=== PATIENT | female | born 1955 | race Caucasian/White ===

== ENCOUNTER 2018-11-12 08:39 | Inpatient (IN) ==
--- NOTE | 2018-11-11 08:33 | Anesthesiology Consultation ---
Date of Service November 11, 2018 Assessment & Plan (1) Encounter for pre-operative examination: PCP CLEARANCE 11/11/18: EKG reviewed. "RCRI 4%, no further evaluation indicated at this time. Based on patient's history and completed physical I believe this patient will do well for this surgical intervention." Spinal cord stimulator in place. Patient aware to bring remote AM DOS. OR notified. Chart Review Chart Review: Acceptable Risk for Surgery and Patient NOT seen in Pre Admission Testing History Surgery Operation Date: 11/12/18 10:25 Proposed Procedures p L3-L4 Decompression and Fusion, L4-L5 Removal Hardware, Spinal Cord Monitoring - Maciel Campbell, Height/Weight Height: 5 ft 4 in Weight: 70.76 kg Allergies Allergy/AdvReac Type Severity Reaction Status Date / Time mivacurium Allergy Severe Tongue Verified 11/12/18 09:20 swelled, itching (PATIENT DENIES THIS ALLERGY) Sulfa (Sulfonamide Allergy Severe SULFA = Unverified 11/12/18 09:20 Antibiotics) Tongue swelled, itching azithromycin [From Zithromax] Allergy Intermediate Swelling Verified 11/12/18 09:20 of Lip/Tongue/Throat bee venom protein (honey bee) Allergy Unknown ANAPHYLAXIS Verified 11/12/18 09:20 celecoxib Allergy Unknown per Verified 11/12/18 09:20 patient request- contains sulfa cyclobenzaprine AdvReac Unknown lightheadness; Verified 11/12/18 09:20 feels "out of it" Medications Home Medications Medication Instructions Recorded Confirmed Last Taken acetaminophen 500 mg PO QID PRN #0 tab 05/13/13 11/12/18 11/11/18 21:00 alprazolam 0.5 mg PO BID PRN #0 tab 05/13/13 11/12/18 11/12/18 04:30 carisoprodol 350 mg PO QID PRN #0 tab 05/13/13 11/12/18 11/11/18 21:00 fluoxetine 60 mg PO QAM #0 cap 05/13/13 11/12/18 11/11/18 06:00 milnacipran 100 mg PO BID #0 05/13/13 11/12/18 11/11/18 16:00 pantoprazole 40 mg PO QAM #30 tab 05/13/13 11/12/18 11/12/18 04:30 metoprolol succinate 25 mg PO QAM #30 tab 05/27/15 11/12/18 11/12/18 04:30 simvastatin 10 mg PO QAM #0 05/27/15 11/12/18 11/11/18 16:00 hydrochlorothiazide 25 mg PO QAM 30 Days #30 tab 06/03/15 11/12/18 11/11/18 06:00 baclofen 100 mg PO TID 10/16/18 11/12/18 11/11/18 16:00 estradiol 0.5 mg PO BID 10/16/18 11/12/18 11/11/18 06:00 gabapentin 100 mg PO TID 10/16/18 11/12/18 11/11/18 21:00 hydrocodone-acetaminophen [Vicodin 1 tab PO Q6H PRN 10/16/18 11/12/18 1 Month Ago ES] ~10/13/18 lactobacillus combination no.4 1 tab PO DAILY 10/16/18 11/12/18 11/11/18 06:00 [Probiotic] polyethylene glycol 3350 [Miralax] 17 g PO DAILY 10/16/18 11/12/18 11/11/18 06:00 aluminum-magnesium hydroxide 30 ml PO BID 11/12/18 11/12/18 11/11/18 21:00 docusate sodium [Colace] 200 mg PO DAILY 11/12/18 11/12/18 11/11/18 06:00 Active Medications Generic Name Dose Route Start Last Admin Trade Name Freq PRN Reason Stop Dose Admin Acetaminophen 1,000 mg 11/12/18 06:00 11/12/18 09:17 Tylenol PO 11/12/18 18:00 1,000 mg PREOP EMILIANA Administration Gabapentin 600 mg 11/12/18 06:00 11/12/18 09:17 Neurontin PO 11/12/18 18:00 600 mg PREOP EMILIANA Administration Lactated Ringer's 1,000 mls @ 15 mls/hr 11/12/18 06:00 11/12/18 09:17 Lr IV 11/13/18 05:59 15 mls/hr .Q24H EMILIANA Administration Past Medical History Medical History Anxiety (Acute) Depression (Acute) Esophageal motility disorder (Acute) Fibromyalgia (Acute) GERD (gastroesophageal reflux disease) (Acute) Hypertension (Acute) Irritable bowel syndrome (Acute) Lumbar spinal stenosis (Acute) Neuropathy (Acute) kylie feet and hands Bronchitis H/O Cardiac murmur PT REPORTED -- NO MURMUR NOTED AT PCP CLEARANCE 11/11 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 Past Family History Family History Grandmother Colon cancer Sister Colon cancer Grandmother (Maternal) Breast cancer Mother Breast cancer Aunt Breast cancer Past Surgical History Surgical History H/O laparoscopy (Acute) to look for adhesions H/O lumbosacral spine surgery (Acute) LUMBAR FUSION L4-L5 H/O tubal ligation (Acute) H/O: hysterectomy (Acute) TRAVON Hx of tonsillectomy (Acute) H/O shoulder surgery RIGHT SHOULDER CYST REMOVAL History of breast biopsy STEREOTACTIC RIGHT BREAST History of carpal tunnel release RIGHT History of colonoscopy S/P insertion of spinal cord stimulator S/P trigger finger release RIGHT RING FINGER Past Anesthesia History Difficult Airway H/O GLIDESCOPE 2013 LUMBAR SURGERY Social History Smoking Status: Former smoker tobacco type: cigarettes Do You Dip or Chew Tobacco: No Smoking End Date: QUIT IN HER 'S Hx Alcohol Use: Yes Alcohol type: wine alcohol intake frequency: holidays/special occasions only Hx Substance Use: No substance use type: does not use Physical Exam Vital Signs Last Vital Signs Temp 36.7 C 11/12/18 09:39 Pulse 72 11/12/18 09:39 Resp 20 11/12/18 09:39 BP 184/79 H 11/12/18 09:39 Pulse Ox 99 11/12/18 09:39 Testing Laboratory Results 11/05/18 WBC: 6.11 H/H: 13.5/40.0 PLATELETS: 266 SODIUM: 135 POTASSIUM: 3.9 CHLORIDE: 100 CO2: 28 BUN: 15 CREATININE: 0.80 GLUCOSE: 95 Electrocardiogram Date: 11/11/18 Findings: + NSR @ (84) Possible LAE. No significant change compared to 05/16/13. Chest X-Ray Date: 11/05/18 1. No acute process of the chest. 2. Bio stimulator overlying the mid thoracic spine.
[~2018-11-12 08:39] MED LIST: ACETAMINOPHEN 500 MG TAB PO SCH; CLINDAMYCIN 600 MG/54 ML BAG IV SCH; GABAPENTIN 300 MG x 2 PO SCH; HYDROmorphone INJ 2 MG/ML SYR/VIAL ONE; LR 15ML/HR IV SCH; MIDAZOLAM HCL 1 MG/ML 2ML VIAL ONE; PROPOFOL IV EMULSION 10 MG/ML 100 ML VIAL IV ONE; fentaNYL citrate 100 MCG/2 ML VIAL ONE
[2018-11-12] MEDS ORDERED: HYDROmorphone INJ 2 MG/ML SYR/VIAL IV PRN (10:12)
[2018-11-12] MEDS ORDERED: ePHEDrine sulfate 50 MG/ML AMP IV PRN (10:12)
[2018-11-12] MEDS ORDERED: ONDANSETRON INJ 2 MG/ML 2 ML VIAL IV PRN (10:12)
[2018-11-12] MEDS ORDERED: ATROPINE SULFATE 0.1 MG/ML 10ML SYR IV PRN (10:12)
--- NOTE | 2018-11-12 10:20 | History & Physical Bridge Note ---
Date of Service November 12, 2018 History & Physical Bridge Note I have examined the patient, reviewed the History & Physical and in the interval since the performance of the History & Physical I have noted the following changes of clinical significance: no changes noted
--- NOTE | 2018-11-12 10:21 | History & Physical Report ---
Date of Service November 12, 2018 Assessment & Plan (1) Spinal stenosis, lumbar region with neurogenic claudication: Decompression and fusion L3-4 removal of hardware L4-5 Present on Admission?: Yes History of Present Illness Chief Complaint: Back and leg pain Primary Care Provider: Geeta Arambula This is a 63-year-old female well-known to me that presents with severe back and leg pain. After failing extensive course of nonoperative care is here for surgical intervention. Allergies Allergy/AdvReac Type Severity Reaction Status Date / Time mivacurium Allergy Severe Tongue Verified 11/12/18 09:20 swelled, itching (PATIENT DENIES THIS ALLERGY) Sulfa (Sulfonamide Allergy Severe SULFA = Unverified 11/12/18 09:20 Antibiotics) Tongue swelled, itching azithromycin [From Zithromax] Allergy Intermediate Swelling Verified 11/12/18 09:20 of Lip/Tongue/Throat bee venom protein (honey bee) Allergy Unknown ANAPHYLAXIS Verified 11/12/18 09:20 celecoxib Allergy Unknown per Verified 11/12/18 09:20 patient request- contains sulfa cyclobenzaprine AdvReac Unknown lightheadness; Verified 11/12/18 09:20 feels "out of it" Home Medications Home Medications Medication Instructions Recorded Confirmed Type acetaminophen 500 mg PO QID PRN #0 tab 05/13/13 11/12/18 History alprazolam 0.5 mg PO BID PRN #0 tab 05/13/13 11/12/18 History carisoprodol 350 mg PO QID PRN #0 tab 05/13/13 11/12/18 History fluoxetine 60 mg PO QAM #0 cap 05/13/13 11/12/18 History milnacipran 100 mg PO BID #0 05/13/13 11/12/18 History pantoprazole 40 mg PO QAM #30 tab 05/13/13 11/12/18 History metoprolol succinate 25 mg PO QAM #30 tab 05/27/15 11/12/18 History simvastatin 10 mg PO QAM #0 05/27/15 11/12/18 History hydrochlorothiazide 25 mg PO QAM 30 Days #30 tab 06/03/15 11/12/18 History baclofen 100 mg PO TID 10/16/18 11/12/18 History estradiol 0.5 mg PO BID 10/16/18 11/12/18 History gabapentin 100 mg PO TID 10/16/18 11/12/18 History hydrocodone-acetaminophen [Vicodin 1 tab PO Q6H PRN 10/16/18 11/12/18 History ES] lactobacillus combination no.4 1 tab PO DAILY 10/16/18 11/12/18 History [Probiotic] polyethylene glycol 3350 [Miralax] 17 g PO DAILY 10/16/18 11/12/18 History aluminum-magnesium hydroxide 30 ml PO BID 11/12/18 11/12/18 History docusate sodium [Colace] 200 mg PO DAILY 11/12/18 11/12/18 History Past Med/Surg History Medical History Anxiety (Acute) Depression (Acute) Esophageal motility disorder (Acute) Fibromyalgia (Acute) GERD (gastroesophageal reflux disease) (Acute) Hypertension (Acute) Irritable bowel syndrome (Acute) Lumbar spinal stenosis (Acute) Neuropathy (Acute) kylie feet and hands Bronchitis H/O Cardiac murmur PT REPORTED -- NO MURMUR NOTED AT PCP CLEARANCE 11/11 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 Surgical History H/O laparoscopy (Acute) to look for adhesions H/O lumbosacral spine surgery (Acute) LUMBAR FUSION L4-L5 H/O tubal ligation (Acute) H/O: hysterectomy (Acute) TRAVON Hx of tonsillectomy (Acute) H/O shoulder surgery RIGHT SHOULDER CYST REMOVAL History of breast biopsy STEREOTACTIC RIGHT BREAST History of carpal tunnel release RIGHT History of colonoscopy S/P insertion of spinal cord stimulator S/P trigger finger release RIGHT RING FINGER Family History Grandmother Colon cancer Sister Colon cancer Grandmother (Maternal) Breast cancer Mother Breast cancer Aunt Breast cancer Social History Preferred Language: Indonesian Communication Ability: Effective Hoof And Shoe Inspector Required: No Beliefs That Will Affect Care: None Current Living Situation: Spouse Other Information That Helps Us Care for You: No Feels Safe at Home: Yes Safety Concerns: Feels Safe At This Time Smoking Status: Former smoker Tobacco Type: cigarettes Do You Dip or Chew Tobacco: No Smoking End Date: QUIT IN HER 'S Second Hand Exposure: No Tobacco Cessation Education Requested by Patient: No Hx Alcohol Use: Yes Alcohol type: wine Hx Substance Use: No Physical Exam Vital Signs (Past 24 Hours): Last Vital Signs Temp 36.7 C 11/12/18 09:39 Pulse 72 11/12/18 09:39 Resp 20 11/12/18 09:39 BP 184/79 H 11/12/18 09:39 Pulse Ox 99 11/12/18 09:39 Physical Exam: Patient is alert and oriented obvious distress secondary to L3 radiculopathy on the right. Neurologically intact.
[2018-11-12] MEDS ORDERED: BACITRACIN INJ 50,000 UNIT VIAL ONE (10:34)
[2018-11-12] MEDS ORDERED: BUPIVACAINE/EPINEPHRINE 0.5% MPF 1:200,000 30 ML VIAL ONE (10:34)
[2018-11-12] MEDS ORDERED: fentaNYL citrate 100 MCG/2 ML VIAL ONE ×3 (11:10→12:00)
[2018-11-12] MEDS ORDERED: LABETALOL HCL IV 5 MG/ML 20ML IV ONE ×5 (11:31)
[2018-11-12] MEDS ORDERED: LARYING-O-JET KIT (LTA) ONE (11:31)
[2018-11-12] MEDS ORDERED: FLOSEAL HEMOSTATIC MATRIX 10ML TOP ONE (11:41)
[2018-11-12] MEDS ORDERED: ALBUMIN HUMAN 5% 12.5 GM/250 ML VIAL IV ONE (12:22)
[2018-11-12] MEDS ORDERED: HYDROmorphone INJ 2 MG/ML SYR/VIAL ONE (12:36)
[2018-11-12] MEDS ORDERED: NEOSTIGMINE METHYLSULFATE 1 MG/ML 10ML VIAL ONE (12:38)
[2018-11-12] MEDS ORDERED: PROPOFOL IV EMULSION 10 MG/ML 20 ML VIAL IV ONE (12:38)
[2018-11-12] MEDS ORDERED: PHENYLEPHRINE 100MCG/ML 5ML SYR ONE (12:38)
[2018-11-12] MEDS ORDERED: ROCURONIUM BROMIDE 10 MG/ML 5 ML VIAL ONE (12:38)
[2018-11-12] MEDS ORDERED: DEXAMETHASONE SOD INJ 4 MG/ML VIAL ONE (12:38)
[2018-11-12] MEDS ORDERED: ePHEDrine sulfate 50 MG/ML SYR ONE (12:38)
[2018-11-12] MEDS ORDERED: LIDOCAINE HCL 2% 2 ML VIAL/AMP(20MG/ML) INFIL ONE (12:38)
[2018-11-12] MEDS ORDERED: GLYCOPYRROLATE 0.2 MG/ML VIAL ONE (12:38)
[2018-11-12] MEDS ORDERED: ONDANSETRON INJ 2 MG/ML 2 ML VIAL ONE (12:38)
[2018-11-12] MEDS ORDERED: KETOROLAC 30 MG/ML VIAL ONE (12:38)
--- NOTE | 2018-11-12 12:39 | Operative Report ---
Post Operative Report Pre & Post Diagnosis Operation Date: 11/12/18 10:25 Pre-Op Diagnosis: Radiculopathy, Lumbar Region Post-Op Diagnosis: Radiculopathy, Lumbar Region Procedure Operation Date: 11/12/18 10:25 Actual Procedures #1 removal of posterior instrumentation L4-5. #2 exploration of fusion L4-5 per #3 lumbar decompression with bilateral medial facetectomies foraminotomies L2-3 L3-4. #4 posterior spinal fusion L3-4 per #5 placement posterior instrumentation L3-4. #6 interbody fusion L3-4. #7 patient peek cage 12 x 22 mm at L3-4. #8 placement of local autograft in the posterior lateral gutters. #9 history infuse collagen sponge bone mass graft in the posterior lateral gutters ostial amp and interbody space. Surgeon Maciel Campbell, [employer] Nadya Contreras Estimated Blood Loss 450 Findings Consistent with Post-Op Diagnosis Specimens None Indications This is a 63-year-old female presents with significant radiculopathy and weakne ss in ultimately elected to go the above-mentioned procedure. Description of Procedure Patient was met with identified and informed consent obtained. Patient was then taken the operative suite underwent intubation placed in the prone position the Cornell table on top of the Shashank frame. All bony prominences well-padded eyes inspected to ensure no external pressure placed upon the peer at this point the lumbar spine was prepped and draped in normal sterile fashion. Sharp dissection with the assistance of Bovie cautery was performed down to and exposing the lamina and transverse processes of L3 and instrumentation L4 and L5 bilaterally. Then proceed remove the hardware at L4-5 bilaterally explore the fusion mass noting it to be intact. Then performed complete laminectomy of L3 partial laminectomy of L2 including bilateral medial facetectomies and foraminotomies addressing severe stenosis. I also removed a massive herniated fragment of disc material that migrated cephalad at the L3-4 level on the left. After this complete pedicle screws were placed in L3 and L4 bilaterally with assistance of fluoroscopy the process akua placed. By way of a transforaminal approach and left complete discectomy was performed in plate graded to subcortical bleeding bone and a 12 x 26 2 mm peek cage filled with ostium bone graft tapped in position. The rods were then locked in final position bilaterally. The transverse processes of L2-3 and L4 burred to subcortical being bone. Infuse collagen sponge mass graft local autograft placed in the posterior gutters. 15 round DIMAS drain inserted. The incision was then closed with 1 Vicryl fascia 2-0 Vicryl subcutaneously and 4-0 Monocryl for Fransen closure. Steri-Strip sterile dressings placed. Patient will continue to PACU stable condition. Please note Nadya Contreras present throughout the entire procedure involved in patient positioning complex portions of the surgery and final skin closure. Please note spinal cord monitoring was utilized throughout the procedure and no changes were noted. I attest to the content of the Intraoperative Record and any orders documented therein. Any exceptions are noted below.
--- NOTE | 2018-11-12 12:45 | Fluoroscopy Report ---
FL lumbar spine 2-3V CLINICAL HISTORY: L3-L4 DECOMPRESSION AND FUSION L4-L5 REMOVAL COMPARISON STUDY: None FLUOROSCOPY TIME: 5.7 seconds NUMBER OF FLUOROSCOPIC IMAGES: 2 FINDINGS: Interval removal of the hardware at L4-L5. Laminectomy and fusion at L3-L4. Disc spaces are present. Alignment is anatomic. Note is made of a linear metallic object inferior to the right pedic le at L3. This potentially is operative although surgical correlation is suggested. IMPRESSION: Laminectomy and fusion as discussed. The above report was generated using voice recognition software. It may contain grammatical, syntax or spelling errors. Electronically signed by: Nahum Pacheco M.D. 11/12/2018 12:43 PM
[2018-11-12] MEDS ORDERED: ESMOLOL HCL INJ 10 MG/ML 10ML VIAL IV ONE (13:01)
[2018-11-12] MEDS: fentaNYL citrate 100 MCG/2 ML VIAL IV PRN ×2 (13:06→13:11)
[2018-11-12] MEDS ORDERED: HYDROmorphone INJ 1 MG/ML SYRINGE ONE ×2 (13:30→13:40)
--- NOTE | 2018-11-12 13:31 | Anesthesiology Progress Note ---
Date of Service November 12, 2018 Anesthesia Post Procedure Vital Signs Vital Signs: Temp Pulse Pulse Resp BP Pulse Ox 11/12/18 12:55 36.4 C L 87 12 147/73 H 100 11/12/18 09:39 36.7 C 72 20 184/79 H 99 Pain Intensity Lower Back: Pain Intensity: 4 Transfer of Care Handoff Completed per policy Notes Mental Status: alert / awake / arousable Patient Amnestic to Procedure: Yes Nausea / Vomiting: adequately controlled Pain: adequately controlled Airway Patency, RR, SpO2: stable & adequate BP & HR: stable & adequate Hydration State: stable & adequate Anesthetic Complications: no major complications apparent
[2018-11-12] MEDS ORDERED: DIAZEPAM 5 MG/ML INJ 10ML VIAL ONE (13:52)
[2018-11-12] MEDS ORDERED: DIAZEPAM 5 MG/ML INJ 10ML VIAL IV STA (13:54)
[2018-11-12] MEDS ORDERED: HYDROmorphone INJ 0.5 MG/0.5 ML SYR IV PRN (15:06)
[2018-11-12] MEDS ORDERED: METOCLOPRAMIDE HCL INJ 5 MG/ML 2 ML VIAL IV PRN (15:06)
[2018-11-12] MEDS ORDERED: LORazepam 0.5 MG/1 ML VIAL IV PRN (15:06)
[2018-11-12] MEDS ORDERED: SOD PHOSPHATE/SOD BIPHOSPHATE ENEMA 132 ML BTL PR PRN (15:06)
[2018-11-12] MEDS ORDERED: ACETAMINOPHEN 1,000 MG/100 ML VIAL IV PRN (15:06)
[2018-11-12] MEDS ORDERED: ALPRAZolam 0.5 MG TABLET PO PRN (15:06)
[2018-11-12] MEDS ORDERED: DO NOT ADMINISTER PNEUMOCOCCAL VACCINE PRN (15:06)
[2018-11-12] MEDS ORDERED: BISACODYL 10 MG SUPP PR PRN (15:06)
[2018-11-12] MEDS ORDERED: DO NOT ADMINISTER FLU VACCINE PRN (15:06)
[2018-11-12] MEDS ORDERED: MAGNESIUM HYDROXIDE SUSP 30 ML UDC PO PRN (15:06)
[2018-11-12] MEDS ORDERED: FAMOTIDINE 20 MG TAB PO PRN (15:06)
[2018-11-12] MEDS ORDERED: PROMETHAZINE HCL 12.5 MG in SODIUM CHLORIDE 0.9% 50 ML IV PRN (15:06)
[2018-11-12] MEDS ORDERED: ALUMINUM/MAGNESIUM SUSP 30 ML UDC PO PRN (15:06)
[2018-11-12] MEDS ORDERED: HYDROCODONE/ACETAMINOPHEN 7.5/325MG TAB PO PRN (15:06)
[2018-11-12] MEDS ORDERED: ACETAMINOPHEN 500 MG TAB PO PRN (15:06)
[2018-11-12] MEDS ORDERED: ONDANSETRON 4 MG TAB PO PRN (15:06)
[2018-11-12] MEDS: KETOROLAC TROMETHAMINE 15 MG/ML VIAL IV SCH ×2 (16:25→21:14)
[2018-11-12] MEDS: BACLOFEN 10 MG TAB PO SCH ×2 (16:26→21:14)
[2018-11-12] MEDS: GABAPENTIN 100 MG CAP PO SCH ×2 (16:26→21:14)
[2018-11-12] MEDS: CEFAZOLIN 2000MG 2,000 MG/15 ML SYR IV SCH (17:57)
[2018-11-12] MEDS: LACTATED RINGER'S 1,000 ML IV SCH ×2 (18:19→23:22)
[2018-11-12] MEDS: ACETAMINOPHEN 500 MG TAB PO PRN (18:19)
[2018-11-12] MEDS ORDERED: SAVELLA 100 MG PO SCH (21:00)
[2018-11-12] MEDS ORDERED: Nursing to Pharmacy Communication ONE (21:11)
[2018-11-12] MEDS: DOCUSATE SODIUM/SENNA 50/8.6MG TAB PO SCH (21:14)
[2018-11-12] MEDS: ESTRADIOL 1 MG TAB PO SCH (21:15)
[2018-11-12] MEDS: ALUMINUM/MAGNESIUM SUSP 30 ML UDC PO SCH (21:15)
[2018-11-12] MEDS ORDERED: COUGH DROP (SUGAR FREE) LOZ 24 LOZ/1 BOX BUCCAL ONE (21:21)
[2018-11-13] MEDS: ONDANSETRON INJ 2 MG/ML 2 ML VIAL IV PRN (03:15)
[2018-11-13] MEDS: CEFAZOLIN 2000MG 2,000 MG/15 ML SYR IV SCH (03:15)
[2018-11-13] MEDS: KETOROLAC TROMETHAMINE 15 MG/ML VIAL IV SCH ×2 (03:15→10:38)
[2018-11-13] MEDS: LORazepam 0.5 MG TAB PO PRN ×2 (03:32→15:30)
[2018-11-13] MEDS: POLYETHYLENE (MIRALAX) 17 GM PACK PO SCH ×4 (05:42→23:48)
[2018-11-13 05:49] LABS: Hematocrit (blood only) 28.4 % (37-47); Hemoglobin 9.5 g/dL (12.0-16.0); Immature Granulocytes # (auto) 0.02 K/uL (0.00-0.02); Immature Granulocytes % (auto) 0.2 %; Lymphocytes # (auto) 1.36 K/uL (1.2-3.4); Lymphocytes % (auto) 14.8 %; Mean Corpuscular Hgb Conc 33.5 g/dL (32-36); Mean Corpuscular Volume 86.1 fL (80-100); Mean Platelet Volume 8.7 fL (7.4-10.4); Monocytes % (auto) 9.8 %; Neutrophils # (auto) 6.89 K/uL (1.4-6.5); Neutrophils % (auto) 75.2 %; Platelet Count 220 K/uL (130-400); RDW Coefficient of Variation 12.9 % (11.5-14.5); RDW Standard Deviation 40.5 fL (36.4-46.3); White Blood Count 9.17 K/uL (4.8-10.8)
[2018-11-13] MEDS: CARISOPRODOL 350 MG TABLET PO PRN ×2 (05:49→22:21)
[2018-11-13 06:22] LABS: BUN Creatinine Ratio 17.1 (10-20); Calcium 8.4 mg/dl (8.5-10.1); Creatinine Clr Calc Pharmacy 83.2 ml/min; Est GFR (African American) 107.9; Est GFR (Non-African American) 93.1; Potassium 4.4 mmol/L (3.5-5.1)
--- NOTE | 2018-11-13 08:44 | Anesthesiology Progress Note ---
Date of Service November 13, 2018 Anesthesia Post Procedure Vital Signs Vital Signs: Temp Pulse Pulse Resp BP Pulse Ox 11/13/18 07:00 36.8 C 95 H 16 156/72 H 98 11/13/18 04:00 36.6 C 97 H 18 147/69 H 96 11/12/18 23:03 36.5 C 93 H 18 144/72 H 96 11/12/18 20:13 36.6 C 94 H 16 133/70 97 11/12/18 16:30 36.3 C L 93 H 16 148/72 H 99 11/12/18 15:30 36.5 C 93 H 16 163/73 H 100 11/12/18 15:00 36.3 C L 85 16 149/72 H 100 11/12/18 14:30 36.3 C L 91 H 14 148/72 H 100 11/12/18 14:15 87 21 149/66 H 100 11/12/18 14:05 36.2 C L 84 18 141/62 H 100 11/12/18 13:55 89 14 145/65 H 100 11/12/18 13:45 87 17 144/65 H 100 11/12/18 13:35 89 20 140/66 100 11/12/18 13:25 89 21 147/74 H 100 11/12/18 13:15 81 10 L 152/66 H 100 11/12/18 13:05 86 21 147/80 H 100 11/12/18 12:55 36.4 C L 87 12 147/73 H 100 11/12/18 09:39 36.7 C 72 20 184/79 H 99 Pain Intensity Lower Back: Pain Intensity: 2 Chest: Pain Intensity: 5 Notes Mental Status: alert / awake / arousable and participated in evaluation Patient Amnestic to Procedure: Yes Nausea / Vomiting: adequately controlled Pain: adequately controlled Airway Patency, RR, SpO2: stable & adequate BP & HR: stable & adequate Hydration State: stable & adequate Anesthetic Complications: no major complications apparent and Pt Satisfied with anesthetic care
[2018-11-13] MEDS: FLUOXETINE HCL 20 MG CAP PO SCH (08:53)
[2018-11-13] MEDS: PANTOprazole 40 MG TAB PO SCH (08:53)
[2018-11-13] MEDS: SIMVASTATIN 10 MG TAB PO SCH (08:53)
[2018-11-13] MEDS: METOPROLOL SUCC 25MG EXT REL TAB PO SCH (08:53)
[2018-11-13] MEDS: hydroCHLOROthiazide 25 MG TAB PO SCH (08:54)
[2018-11-13] MEDS: DOCUSATE SODIUM 100 MG CAP PO SCH (08:55)
[2018-11-13] MEDS: ESTRADIOL 1 MG TAB PO SCH ×2 (08:55→20:56)
[2018-11-13] MEDS: BACLOFEN 10 MG TAB PO SCH ×2 (08:56→15:29)
[2018-11-13] MEDS: GABAPENTIN 100 MG CAP PO SCH ×3 (08:56→20:56)
[2018-11-13] MEDS: LACTOBACILLUS ACIDOPHILUS (FLORANEX) TAB PO SCH (08:56)
[2018-11-13] MEDS: ALUMINUM/MAGNESIUM SUSP 30 ML UDC PO SCH ×2 (08:56→20:56)
[2018-11-13] MEDS: SAVELLA 100 MG PO SCH ×2 (08:57→15:29)
[2018-11-13] MEDS: TRAMADOL HCL 50 MG TABLET PO PRN ×2 (09:03→17:37)
[2018-11-13] MEDS ORDERED: BACLOFEN 10 MG TAB PO PRN (13:50)
--- NOTE | 2018-11-13 13:51 | Orthopedic Progress Note ---
Date of Service November 13, 2018 Assessment & Plan (1) Spinal stenosis, lumbar region with neurogenic claudication: At this point we will continue physical therapy monitor DIMAS output. Anticipate discharge home the next few days. Present on Admission?: Yes Subjective Patient's back pain is controlled left leg symptoms markedly improved. Physical Exam 2 Physical Exam: On exam she is improved strength testing. She appears comfortable. Results & Data Vital Signs (Past 12 Hours) Vital Signs Temp Pulse Resp BP Pulse Ox 11/13/18 12:00 36.8 C 88 16 133/74 98 11/13/18 07:00 36.8 C 95 H 16 156/72 H 98 11/13/18 04:00 36.6 C 97 H 18 147/69 H 96
[2018-11-13] MEDS: ACETAMINOPHEN 500 MG TAB PO PRN ×2 (14:30→22:21)
[2018-11-13] MEDS ORDERED: MAGNESIUM CITRATE 296 ML/BTL PO ONE (19:48)
[2018-11-13] MEDS: DOCUSATE SODIUM/SENNA 50/8.6MG TAB PO SCH (20:56)
[2018-11-14] MEDS: ONDANSETRON INJ 2 MG/ML 2 ML VIAL IV PRN (02:53)
[2018-11-14] MEDS: TRAMADOL HCL 50 MG TABLET PO PRN ×2 (04:21→12:42)
[2018-11-14] MEDS: CARISOPRODOL 350 MG TABLET PO PRN ×2 (04:22→16:19)
[2018-11-14] MEDS: LORazepam 0.5 MG TAB PO PRN ×2 (07:26→16:19)
[2018-11-14] MEDS: ACETAMINOPHEN 500 MG TAB PO PRN ×2 (07:27→16:19)
[2018-11-14] MEDS: ALUMINUM/MAGNESIUM SUSP 30 ML UDC PO SCH (08:42)
[2018-11-14] MEDS: DOCUSATE SODIUM 100 MG CAP PO SCH (08:42)
[2018-11-14] MEDS: ESTRADIOL 1 MG TAB PO SCH (08:47)
[2018-11-14] MEDS: BACLOFEN 10 MG TAB PO SCH ×2 (08:48→15:04)
[2018-11-14] MEDS: GABAPENTIN 100 MG CAP PO SCH ×2 (08:48→13:49)
[2018-11-14] MEDS: hydroCHLOROthiazide 25 MG TAB PO SCH (08:48)
[2018-11-14] MEDS: LACTOBACILLUS ACIDOPHILUS (FLORANEX) TAB PO SCH (08:48)
[2018-11-14] MEDS: SIMVASTATIN 10 MG TAB PO SCH (08:49)
[2018-11-14] MEDS: METOPROLOL SUCC 25MG EXT REL TAB PO SCH (08:49)
[2018-11-14] MEDS: PANTOprazole 40 MG TAB PO SCH (08:49)
[2018-11-14] MEDS: SAVELLA 100 MG PO SCH ×2 (08:49→15:04)
[2018-11-14] MEDS: FLUOXETINE HCL 20 MG CAP PO SCH (08:50)
[2018-11-14] MEDS ORDERED: DEXAMETHASONE SOD PHOSPHATE 8 MG in SYRINGE 0 ML IV ONE (14:00)
--- NOTE | 2018-11-14 15:52 | Discharge Summary ---
Date of Service November 14, 2018 Admission HPI Per Admitting Provider This is a 63-year-old female well-known to me that presents with severe back and leg pain. After failing extensive course of nonoperative care is here for surgical intervention. Principal Diagnosis Lumbar spinal stenosis with radiculopathy Discharge Data Allergies Allergy/AdvReac Type Severity Reaction Status Date / Time mivacurium Allergy Severe Tongue Verified 11/12/18 09:20 swelled, itching (PATIENT DENIES THIS ALLERGY) Sulfa (Sulfonamide Allergy Severe SULFA = Unverified 11/12/18 09:20 Antibiotics) Tongue swelled, itching azithromycin [From Zithromax] Allergy Intermediate Swelling Verified 11/12/18 09:20 of Lip/Tongue/Throat bee venom protein (honey bee) Allergy Unknown ANAPHYLAXIS Verified 11/12/18 09:20 celecoxib Allergy Unknown per Verified 11/12/18 09:20 patient request- contains sulfa cyclobenzaprine AdvReac Unknown lightheadness; Verified 11/12/18 09:20 feels "out of it" Consultations 11/12/18 15:06 Consult Case Management - Discharge Planning Routine Procedures Performed Operation Date: 11/12/18 10:25 Actual Procedures p L3-L4 Decompression and Fusion, Spinal Cord Monitoring(Not Applicable) - Maciel Campbell DO s L4-L5 Removal Hardware(Not Applicable) - Maciel Campbell DO Ordered Studies 11/12/18 10:25 FL fluoroscopy <1hr Routine FL lumbar spine 2-3V Routine Hospital Course (1) Spinal stenosis, lumbar region with neurogenic claudication: Patient underwent lumbar decompression fusion tolerated this well was taken to the orthopedic floor postoperative. Postop day and when she was up and ambulating leg pain improved. She dressed appropriately through postop day #2. DIMAS drain decreasing probably. Subsequently discharged home. Discharge orders and instructions from the chart for further review. Total Time Total Time Spent Total Time Spent (In Minutes): 20 minutes Discharge Plan Discharge Items Patient Disposition: Home - Self-Care Reason For Visit: Radiculopathy, Lumbar Region Discharge Diagnosis: lumbar disk herniation Discharge Goals: Decrease discomfort Activity: Per 'Additional Instructions' section Non-emergency contact: Primary Care Provider Call non-emergency contact if: you have any medication questions Follow-up/Referrals: Geeta Arambula MD [Primary Care Provider] - Diet: Regular Addtl Provider Instructions: ACTIVITY RECOMMENDATIONS: SELF CARE INSTRUCTIONS AFTER THORACIC/LUMBAR FUSIONS 1. You may walk to your tolerance. It is good exercise for your legs and back. Expect some back and intermittent leg aches and pains. 2. You may perform "counter-top" level activities (make a sandwich, shon with a project, etc.). 3. No bending or lifting of more than 10 pounds or back twisting of any nature (roll like a log when turning in bed). 4. You may ride in a car for 20-30 minutes at a time. No driving until after your first visit with your doctor. 5. Frequent changes of position and restricting sitting to 30 minutes at a time will help limit the amount of back spasms and stiffness you may experience. 6. You may discontinue the use of ambulatory aids (cane, crutches, etc.) once your strength and confidence allow. 7. You may frame carver spindle the shower and let water strike your incision when you arrive home at least once daily. Do not take a tub bath, sit in a hot tub or go into a swimming pool until after your first recheck in the office. SPECIAL CARE INSTRUCTIONS: VERY IMPORTANT TO READ AND REVIEW A. Your surgical incision has been closed with a cosmetic suture under the skin that will dissolve in about 6 weeks. In 14 days, you can use a pair of clean scissors and cut the suture that is left outside of the skin at the ends of your incision. 1. The small skin tapes can be removed 7 days after surgery if they have not fallen off by that point. 2. You may keep the wound open to air as much as possible to promote healing after post-op day number 5 unless told otherwise by your doctor. 3. If you think the wound looks like it is becoming infected (redness or worsening drainage) and/or you are experiencing fever, chill or worsening back pain and muscle spasms, contact the office so that we may evaluate you as soon as possible. B. Complications are uncommon, but please contact us if you have any signs or symptoms of: 1. wound infection (fever higher than 102.5 degrees F, redness, separation of wound, drainage, or increasing pain from the incision) 2. blood clots in legs (pain, swelling, redness and warmth in legs) 3. urinary tract infection (fever higher than 102.5 degrees F, burning upon urination or increased frequency of urination) 4. nerve problems (inability to walk on your toes or heels, numbness, loss of bowel or bladder control) 5. any other symptoms that concern you C. Please call the office at if you have any concerns or ques tions about your operation or recovery. D. No smoking! Smoking drastically decreases the chance of a solid fusion. E. Do not take any anti-inflammatory medications (Indocin, Advil, Motrin, Aspirin, Naprosyn, etc.) as these may inhibit the chance of a solid fusion. Tylenol is okay to take for pain. MANAGING PAIN AFTER SPINAL SURGERY 1. Narcotic medication is intended for short-term use and will be provided for surgical pain. Surgical pain usually lasts for a period of 4-6 weeks. Narcotic medication includes Percocet, Vicodin, Darvocet, Tylenol #3 or Lortab. 2. Longer-term pain is more appropriately treated with non-narcotic medication such as Tylenol ES. 3. Muscle spasm is not appropriately treated with narcotics. Muscle relaxers such as Soma, Flexeril or Skelaxin can be used along with Tylenol ES. 4. Remember that we all live with some "aches and pains". This is not unusual or uncommon after an injury or as we get older. a. Back pain is expected and may include muscle spasms for 4 to 6 weeks after surgery. The pain should gradually improve. If the pain worsens for no apparent reason, please contact the office. b. Intermittent leg pain may also be experienced and should not be concerned about unless it worsens for no apparent reason. If so, please contact the office. 5. We will provide appropriate medication within the normal guidelines of their prescribed use. We will also be very cautious and aware of potential abuse and extended duration of patients' medication needs. a. Pain medications are for your comfort and to assist with sleep and rest so that the tissue can heal. They are not provided in order to return to normal activity and should not be used through the day. To do so or worsening pain at night can result from ongoing tissue damage and development of tolerance to the prescribed medicine. 6. Please allow 2-3 days to process refills. Prescriptions will not be mailed but must be picked up at the office. FOLLOW UP VISIT: Keep your scheduled follow-up appointment. Any questions, please call the office at . Prescriptions: New hydrocodone-acetaminophen [[place]] 7.5-325 mg Tablet 1 tab PO Q6H PRN (Reason: Pain) Qty: 30 RF: 0 ondansetron HCl 4 mg Tablet 4 mg PO Q6H Qty: 30 RF: 0 Continued carisoprodol 350 mg Tablet 350 mg PO QID PRN (Reason: Spasms) Qty: 0 RF: 0 alprazolam 0.5 mg Tablet 0.5 mg PO BID PRN (Reason: Anxiety) Qty: 0 RF: 0 pantoprazole 40 mg Tablet,Delayed Release (Dr/Ec) 40 mg PO QAM Qty: 30 RF: 0 fluoxetine 20 mg Capsule 60 mg PO QAM Qty: 0 RF: 0 acetaminophen 500 mg Capsule 500 mg PO QID PRN (Reason: Pain) Qty: 0 RF: 0 milnacipran 100 mg Tablet 100 mg PO BID Qty: 0 RF: 0 simvastatin 10 mg Tablet 10 mg PO QAM Qty: 0 RF: 0 metoprolol succinate 25 mg Tablet Extended Release 24 Hr 25 mg PO QAM Qty: 30 RF: 0 hydrochlorothiazide 25 mg Tablet 25 mg PO QAM 30 Days Qty: 30 RF: 5 polyethylene glycol 3350 [Miralax] 17 gram Powder In Packet 17 g PO DAILY RF: 0 baclofen 10 mg Tablet 10 mg PO TID RF: 0 gabapentin 100 mg Capsule 100 mg PO TID RF: 0 estradiol 0.5 mg Tablet 0.5 mg PO BID RF: 0 Probiotic 3 billion cell Capsule 1 tab PO DAILY RF: 0 hydrocodone-acetaminophen [Vicodin ES] 7.5-300 mg Tablet 1 tab PO Q6H PRN (Reason: Pain) RF: 0 docusate sodium [Colace] 100 mg Capsule 200 mg PO DAILY RF: 0 aluminum-magnesium hydroxide 200-200 mg/5 mL Suspension 30 ml PO BID RF: 0 Stand-Alone Forms: [employer] [facility], [facility] [employer]/Other Patient Handouts: Surgery Prevent DVT After Discharge Orders: Discharge Order (Routine); Ordered 11/14/18 Ordered By: Maciel Campbell Admission Data Admit Date/Time: 11/12/18 12:46 Attending Provider: Maciel Campbell Admit Provider: Maciel Campbell Primary Care Provider: Geeta Arambula Service: Surgical Services Other Interventions: Discharge Summary Assessment (RN) Last Done: 11/14/18 14:10
== END 2018-11-14 17:31 | disposition home or self-care (01) | DRG 455 ==
LOC: ASU 08:39 → 3E 12:46

== ENCOUNTER 2021-06-27 07:33 | Inpatient (IN) ==
--- NOTE | 2021-06-14 10:34 | Anesthesiology Consultation ---
Date of Service June 14, 2021 Assessment & Plan (1) Encounter for pre-operative examination: Chart Review Chart Review: Pending: Refer to Additional Notes / Consult section (pending pulmonary clearance and preop Covid testing results ) and Patient NOT seen in Pre Admission Testing -Discussed with Dr. Jacinto- patient does not need additional follow up with vascular but does need pulm clearance - awaiting response Per surgeon medical necessity 06/13/2021 = patient presents with significant severe back pain and bilateral leg pain with any standing and walking. She must stand a markedly stooped posture to obtain any semblance of relief. She failed extensive course of nonoperative care including multiple injections. CAT scans demonstrate severe spinal stenosis adjacent level disease L2-L3. I am recommending urgent decompression and fusion of L2-L3 with removal of instrumentation of L3-L4 to provide relief of her acute pain, prevent further deconditioning and neurologic defect. Per nursing assessment 06/14/2021, patient denies any recent travel. No known Covid infection in the past 90 days. Patient is fully vaccinated for Covid. No known Covid positive exposures or Covid related symptoms. Preop Covid testing scheduled 06/16/21= will await results Last seen by pulmonology 06/08/2021 = Seen as new patient for evaluation of abnormal CT scan 06/06/2021 and chest x-ray 06/01/2021. Patient has been having increasing shortness of breath even with any activity but attributes mostly to her back pain. Noted she also added some weight because she has been unable to remove due to the joint problems. Baseline history of fibromyalgia. Multiple lung nodules per CT scan findingspatient remains at risk for malignancy based on her age. There is need for further follow-up and patient will be scheduled for repeat CT scan of the chest prior to next visit. Shortness of breathincreasing which he attributes to multiple factors which include significant joint problems, obesity with recent increasing weight and likely some level of deconditioning. There is need for further evaluation and patient will be scheduled for basic connective tissue screening, PFT, 6-minute walk test. Patient with also findings suggestive of possible obstructive sleep apneawe will order overnight pulse oximetry done for further evaluation. Patient seen by PCP 06/01/2021 =Patient seen for preoperative evaluation for upcoming lumbar surgery. "Patient has a revised cardiac index score of no risk factors0.4% (95% Cl: 0.1-0.8) for the surgery scheduled." Removal of previous hardware, L3-4 decompression/fusion 11/12/2018 = done under [place] with glide scope #3. ETT #7.0. History Surgery Operation Date: 06/20/21 10:35 Proposed Procedures p L2-L3 Decompression Fusion, L3-L4 Hardware Removal, Spinal Cord Monitoring - Maciel Campbell, Height/Weight Height: 5 ft 4 in Weight: 87.543 kg Allergies Allergy/AdvReac Type Severity Reaction Status Date / Time bee venom protein (honey bee) Allergy Severe ANAPHYLAXIS Verified 06/14/21 08:53 celecoxib Allergy Severe per Verified 06/14/21 08:53 patient request- contains sulfa Sulfa (Sulfonamide Allergy Severe SULFA = Verified 06/14/21 08:53 Antibiotics) Tongue swelled, itching azithromycin [From Zithromax] Allergy Intermediate Swelling Verified 06/14/21 08:53 of Lip/Tongue/Throat Medications Home Medications Medication Instructions Recorded Confirmed Last Taken acetaminophen 500 mg capsule 500 mg PO QID PRN #0 tab 05/13/13 06/14/21 11/11/18 21:00 fluoxetine 20 mg capsule 40 mg PO QAM #0 cap 05/13/13 06/14/21 11/11/18 06:00 milnacipran 100 mg tablet 100 mg PO BID #0 05/13/13 06/14/21 11/11/18 16:00 pantoprazole 40 mg tablet,delayed 40 mg PO BID #30 tab 05/13/13 06/14/21 11/12/18 04:30 release hydrochlorothiazide 25 mg tablet 25 mg PO QAM 30 Days #30 tab 06/03/15 06/14/21 11/11/18 06:00 gabapentin 100 mg capsule 100 mg PO UD 10/16/18 06/14/21 11/11/18 21:00 lactobacillus combination no.4 3 1 tab PO QAM 10/16/18 06/14/21 11/11/18 06:00 billion cell capsule (Probiotic) polyethylene glycol 3350 17 gram 17 g PO DAILY 10/16/18 06/14/21 11/11/18 06:00 oral powder packet (Miralax) aluminum-magnesium hydroxide 200 30 ml PO HS 11/12/18 06/14/21 11/11/18 21:00 mg-200 mg/5 mL oral suspension docusate sodium 100 mg capsule 100 mg PO DAILY PRN 11/12/18 06/14/21 11/11/18 06:00 (Colace) ondansetron HCl 4 mg tablet 4 mg PO Q6H #30 tab 11/14/18 06/14/21 Unknown aspirin 81 mg capsule 81 mg PO QAM 06/14/21 06/14/21 Unknown atorvastatin 40 mg tablet 40 mg PO DAILY 06/14/21 06/14/21 Unknown carvedilol 6.25 mg tablet 6.25 mg PO BID 06/14/21 06/14/21 Unknown clopidogrel 75 mg tablet (Plavix) 75 mg PO QAM 06/14/21 06/14/21 Unknown cyclobenzaprine 5 mg tablet 5 mg PO DAILY PRN 06/14/21 06/14/21 Unknown lorazepam 0.5 mg tablet 0.5 mg PO BID PRN 06/14/21 06/14/21 Unknown vitamin A-vitamin C-vit E-min 1 tab PO QAM 06/14/21 06/14/21 Unknown tablet Past Medical History Medical History (Updated 06/14/21 @ 11:06 by Denisha Pennington PA-C) Anxiety and depression Cardiac murmur No significant valvular pathology per 2019 ECHO Carotid artery disease S/p bilateral stent TCAR (transcarotid artery revascularization) - left carotid stent placed 01/2020 and right carotid stent placed 05/2020 - <50% stenosis per 06/2020 carotid doppler Esophageal motility disorder Fibromyalgia GERD (gastroesophageal reflux disease) 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 Sister Colon cancer Grandmother (Maternal) Breast cancer Mother Breast cancer Aunt Breast cancer Grandmother (Paternal) Colon cancer Past Surgical History Surgical History (Updated 06/14/21 @ 11:06 by Denisha Pennington PA-C) Family history of reaction to anesthesia MOTHER>NAUSEA H/O laparoscopy to look for adhesions H/O lumbosacral spine surgery X 2 H/O shoulder surgery RIGHT SHOULDER CYST REMOVAL H/O tubal ligation H/O: hysterectomy TRAVON History of breast biopsy STEREOTACTIC RIGHT BREAST History of carpal tunnel release RIGHT History of colonoscopy History of common carotid artery stent placement Left carotid stent placed 01/2020 and right carotid stent placed 05/2020 - follows with [facility] vascular Hx of tonsillectomy S/P insertion of spinal cord stimulator S/P trigger finger release RIGHT RING FINGER Social History Smoking Status: Former smoker tobacco type: cigarettes Do You Dip or Chew Tobacco: No Smoking End Date: 30 YEARS AGO Hx Alcohol Use: No Alcohol type: wine alcohol intake frequency: holidays/special occasions only Hx Substance Use: No substance use type: does not use Testing Laboratory Results 06/01/21= WBC: 14.14 (surgeon's office made aware) H/H: 13.2/42.3 PLATELETS: 402 SODIUM: 138 POTASSIUM: 4.6 CHLORIDE: 98 CO2: 26 BUN: 19 CREATININE: 0.8 GLUCOSE: 95 PT: 12.7 INR: 0.93 UA: Trace protein, trace esterase, 1-4 hyaline casts Electrocardiogram Date: 06/01/21 Findings: + NSR @ (92bpm) Possible left atrial enlargement. Chest X-Ray Date: 06/01/21 No focal parenchymal consolidation. Increased possible peribronchial density and linear atelectasis or scarring particularly right lower lobe field. This could reflect a combination of peribronchial thickening (perhaps airway disease) and linear atelectasis or scarring. Echocardiogram Date: 01/22/20 EF: 68% LV Function: normal Other Findings: no LVH or no diastolic dysfunction Valvular Disease: + no significant valvular disease 10 mm of agitated normal saline solution was given intravenously for a "bubble study" to assess for intracardiac shunt. The "bubble study" is negative for right to left intracardiac shunt. Other Testing Chest CT 06/08/2021 = ill-defined 6 mm right upper lobe nodule is new compared to 02/16/2020, most likely inflammatory, but nonspecific. Follow-up chest CT can be obtained in 6 to 12 months. No significant change in curvilinear scarring in the right lower lobe. Central airways are patent. No pleural effusion or pneumothorax. Carotid duplex 07/08/2020 = less than 50% stenosis to the right and left internal carotid arteries. Antegrade flow to both vertebral arteries.
[~2021-06-27 07:33] MED LIST changes: -CLINDAMYCIN 600 MG/54 ML BAG IV SCH; +GABAPENTIN 300 MG CAP PO SCH; -GABAPENTIN 300 MG x 2 PO SCH; -HYDROmorphone INJ 2 MG/ML SYR/VIAL ONE; -MIDAZOLAM HCL 1 MG/ML 2ML VIAL ONE; -PROPOFOL IV EMULSION 10 MG/ML 100 ML VIAL IV ONE; +ceFAZolin 2000MG 2,000 MG/15 ML SYR IV SCH; -fentaNYL citrate 100 MCG/2 ML VIAL ONE
[2021-06-27] MEDS ORDERED: ONDANSETRON INJ 2 MG/ML 2 ML VIAL IV PRN ×3 (07:47→16:23)
[2021-06-27] MEDS ORDERED: ATROPINE SULFATE 0.1 MG/ML 10ML SYR IV PRN ×2 (07:47→11:43)
[2021-06-27] MEDS ORDERED: PHENYLEPHRINE 100MCG/ML 5ML SYR IV PRN (07:47)
[2021-06-27] MEDS ORDERED: LABETALOL HCL IV 5 MG/ML 20ML IV PRN (07:47)
[2021-06-27] MEDS ORDERED: MEPERIDINE HCL 25 MG/ML CARP/VIAL IV PRN (07:47)
[2021-06-27] MEDS ORDERED: ePHEDrine sulfate 50 MG/ML AMP IV PRN ×2 (07:47→11:43)
[2021-06-27] MEDS ORDERED: HYDROmorphone INJ 1 MG/ML SYRINGE IV PRN ×2 (07:47→16:23)
[2021-06-27] MEDS ORDERED: MIDAZOLAM HCL 1 MG/ML 2ML VIAL ONE (08:39)
[2021-06-27] MEDS ORDERED: fentaNYL citrate 100 MCG/2 ML VIAL ONE (08:39)
[2021-06-27] MEDS ORDERED: HYDROmorphone INJ 2 MG/ML SYR/VIAL IV PRN (11:43)
[2021-06-27] MEDS ORDERED: fentaNYL citrate 100 MCG/2 ML VIAL IV PRN (11:43)
[2021-06-27] MEDS ORDERED: EPINEPHrine INJ 1 MG/ML AMP ONE (11:59)
[2021-06-27] MEDS ORDERED: BUPIVACAINE 0.5 % 5 MG/1 ML MPF 30ML VIAL ONE (11:59)
--- NOTE | 2021-06-27 12:01 | History & Physical Report ---
Date of Service June 27, 2021 Assessment & Plan (1) Spinal stenosis, lumbar region with neurogenic claudication: Plan: L2-L3 decompression fusion, L3-L4 hardware removal History of Present Illness Chief Complaint: Back and leg pain Primary Care Provider: Gino Whitmore MD This is a 65-year-old female presents with chronic persistent back and leg pain. Failing course of nonoperative care she is here for surgical invention. Allergies Allergy/AdvReac Type Severity Reaction Status Date / Time bee venom protein (honey bee) Allergy Severe ANAPHYLAXIS Verified 06/27/21 08:13 celecoxib Allergy Severe per Verified 06/27/21 08:13 patient request- contains sulfa Sulfa (Sulfonamide Allergy Severe SULFA = Verified 06/27/21 08:13 Antibiotics) Tongue swelled, itching azithromycin [From Zithromax] Allergy Intermediate Swelling Verified 06/27/21 08:13 of Lip/Tongue/Throat Home Medications Medication Instructions Recorded Confirmed Type acetaminophen 500 mg capsule 500 mg PO QID PRN #0 tab 05/13/13 06/27/21 History fluoxetine 20 mg capsule 40 mg PO QAM #0 cap 05/13/13 06/27/21 History milnacipran 100 mg tablet 100 mg PO BID #0 05/13/13 06/27/21 History pantoprazole 40 mg tablet,delayed 40 mg PO BID #30 tab 05/13/13 06/27/21 History release hydrochlorothiazide 25 mg tablet 25 mg PO QAM 30 Days #30 tab 06/03/15 06/27/21 History gabapentin 100 mg capsule 100 mg PO UD 10/16/18 06/27/21 History lactobacillus combination no.4 3 1 tab PO QAM 10/16/18 06/27/21 History billion cell capsule (Probiotic) polyethylene glycol 3350 17 gram 17 g PO DAILY 10/16/18 06/27/21 History oral powder packet (Miralax) aluminum-magnesium hydroxide 200 30 ml PO HS 11/12/18 06/27/21 History mg-200 mg/5 mL oral suspension docusate sodium 100 mg capsule 100 mg PO DAILY PRN 11/12/18 06/27/21 History (Colace) ondansetron HCl 4 mg tablet 4 mg PO Q6H #30 tab 11/14/18 06/27/21 Rx aspirin 81 mg capsule 81 mg PO QAM 06/14/21 06/27/21 History atorvastatin 40 mg tablet 40 mg PO DAILY 06/14/21 06/27/21 History carvedilol 6.25 mg tablet 6.25 mg PO BID 06/14/21 06/27/21 History clopidogrel 75 mg tablet (Plavix) 75 mg PO QAM 06/14/21 06/27/21 History cyclobenzaprine 5 mg tablet 5 mg PO DAILY PRN 06/14/21 06/27/21 History lorazepam 0.5 mg tablet 0.5 mg PO BID PRN 06/14/21 06/27/21 History vitamin A-vitamin C-vit E-min 1 tab PO QAM 06/14/21 06/27/21 History tablet Past Med/Surg History Medical History Anemia Anxiety and depression Cardiac murmur No significant valvular pathology per 2019 ECHO Carotid artery disease S/p bilateral stent TCAR (transcarotid artery revascularization) - left carotid stent placed 01/2020 and right carotid stent placed 05/2020 - <50% stenosis per 06/2020 carotid doppler Esophageal motility disorder Fibromyalgia GERD (gastroesophageal reflux disease) 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 History of TIAs 12/2019 (SYPTOMS>RT SIDE WEAKNESS/SLURRED SPEECH/HEADACHE>STILL HAS WORD FINDING PROBLEMS WHEN STRESSED) Hyperlipidemia Hypertension Irritable bowel syndrome Lumbar spinal stenosis Lung nodule UNDER SURVELLANCE Multiple sclerosis Per PCP records Neuropathy kylie feet and hands Obesity Spinal cord stimulator status Implanted by Dr Campbell, PATIENT AWARE TO BRING REMOTE AM DOS PER NURSING Surgical History Family history of reaction to anesthesia MOTHER>NAUSEA H/O laparoscopy to look for adhesions H/O lumbosacral spine surgery X 2 H/O shoulder surgery RIGHT SHOULDER CYST REMOVAL H/O tubal ligation H/O: hysterectomy TRAVON History of breast biopsy STEREOTACTIC RIGHT BREAST History of carpal tunnel release RIGHT History of colonoscopy History of common carotid artery stent placement Left carotid stent placed 01/2020 and right carotid stent placed 05/2020 - [facility] vascular Hx of tonsillectomy S/P insertion of spinal cord stimulator S/P trigger finger release RIGHT RING FINGER Family History Grandmother No problems noted. Sister Colon cancer Grandmother (Maternal) Breast cancer Mother Breast cancer Aunt Breast cancer Grandmother (Paternal) Colon cancer Social History Smoking Status: Former smoker Smoking End Date: 30 YEARS AGO; Second Hand Exposure: No; Do You Dip or Chew Tobacco: No; Hx Alcohol Use: No Hx Substance Use: No Preferred Language: Mexican Communication Ability: Effective Manager New Product Required: No Beliefs That Will Affect Care: None marital status: Current Living Situation: Spouse Feels Safe at Home: Yes Safety Concerns: Feels Safe At This Time Assistive Devices: Glasses Physical Exam Physical Exam: Patient is alert and oriented Heart regular in rhythm Lungs clear Results & Data ([facility]) Vital Signs (Past 12 Hours) Vital Signs Temp Pulse Resp BP Pulse Ox 06/27/21 08:28 36.7 C 88 20 165/99 H 100
[2021-06-27] MEDS ORDERED: ROCURONIUM BROMIDE 10 MG/ML 5 ML VIAL IV ONE (12:51)
[2021-06-27] MEDS ORDERED: DEXAMETHASONE SOD INJ 4 MG/ML VIAL ONE (12:51)
[2021-06-27] MEDS ORDERED: GLYCOPYRROLATE 0.2 MG/ML VIAL ONE (12:51)
[2021-06-27] MEDS ORDERED: LIDOCAINE 2% 2 ML VIAL/AMP(20MG/ML) INFIL ONE (12:51)
[2021-06-27] MEDS ORDERED: HYDROmorphone INJ 2 MG/ML SYR/VIAL ONE (12:51)
[2021-06-27] MEDS ORDERED: PROPOFOL IV EMULSION 10 MG/ML 20 ML VIAL IV ONE (12:51)
[2021-06-27] MEDS ORDERED: PHENYLEPHRINE 100MCG/ML 5ML SYR ONE (12:51)
[2021-06-27] MEDS ORDERED: LARYING-O-JET KIT (LTA) ONE (12:51)
[2021-06-27] MEDS ORDERED: ePHEDrine sulfate 50 MG/ML SYR ONE (12:51)
[2021-06-27] MEDS ORDERED: ONDANSETRON INJ 2 MG/ML 2 ML VIAL ONE (12:51)
[2021-06-27] MEDS ORDERED: NEOSTIGMINE METHYLSULFATE 1 MG/ML 10ML VIAL ONE (12:51)
[2021-06-27] MEDS ORDERED: FLOSEAL HEMOSTATIC MATRIX 10ML TOP ONE (14:21)
--- NOTE | 2021-06-27 14:30 | Operative Report ---
Post Operative Report Pre & Post Diagnosis Operation Date: 06/27/21 09:50 Pre-Op Diagnosis: Spinal Stenosis, Lumbar Region with Neurogenic Cla Post-Op Diagnosis: Spinal Stenosis, Lumbar Region with Neurogenic Cla I identified the patient and participated in the time-out.: Yes Procedure Operation Date: 06/27/21 09:50 Actual Procedures #1 removal of posterior instrumentation L3-L4. #2 exploration of fusion L3-L4 per #3 lumbar decompression with bilateral medial facetectomies and foraminotomies L1-L2 L2-L3. #4 posterior spinal fusion L2-L3. #5 placement of posterior instrumentation L2-L3 L3-L4. #6 interbody fusion L2-L3. #7 placement of peek cage 9x 22 mm at L2-L3. #8 placement locally harvested morselized autograft in the posterior lateral gutters. #9 placement infuse collagen sponge, master graft in the posterior lateral gutters and I factor in the body space. Surgeon Maciel Campbell, DO Snapper On None Estimated Blood Loss 250 Findings See Below The patient is 5 foot 4 inches tall weighing over 87 kg with a BMI in excess of 33. The patient body habitus did contribute to significant technical difficulty and at least 50% increased operative time. Specimens None Indications This is a 65-year-old female who presents with above-mentioned diagnosis after failing extensive course of nonoperative care is here for the above-mentioned procedure. Description of Procedure Patient was met with identified informed consent obtained. Patient was then taken to the operative suite underwent ablation placed in a prone position on a Cornell table on top of the Shashank frame. All bony prominences well-padded eyes inspected to ensure no external pressure placed upon the. This point the lumbar spine was prepped and draped in the normal sterile fashion. Sharp dissection with the assistance of Bovie cautery was then performed down to and exposing the lamina and transverse processes of L2 and instrumentation at L3-L4 bilaterally. I then explored the fusion mass noting it to mature and intact. Then performed a complete laminectomy of L2 partial laminectomy L1 including bilateral medial facetectomies and foraminotomies addressing severe spinal stenosis. Pedicle screws then placed L2-L3-L4 bilaterally with assistance of fluoroscopy and appropriately sized akua placed. By way of a transfemoral approach on the left complete discectomy at L2-L3 was performed endplates curetted to subcortical being bone and a 9 x 22 mm peek cage filled with I factor tapped in position. The rods were then locked in final position bilaterally. The transverse processes of L 2 L3 burred to subcortically bone. Infuse collagen sponge master graft local autograft was placed in the posterior gutters. 15 round DIMAS drain inserted. The incision was then closed with 1 Vicryl in the fascia 2-0 Vicryl subcutaneously and 4 Monocryl for final skin closure. Steri-Strip sterile dressings placed. Patient waken taken back in stable condition. Please note spinal cord monitoring was utilized at the procedure no changes noted. I attest to the content of the Intraoperative Record and any orders documented therein. Any exceptions are noted below.
--- NOTE | 2021-06-27 14:37 | Fluoroscopy Report ---
FL lumbar spine 2-3V CLINICAL HISTORY: L2-L3 DECOMPRESSION AND FUSION L3-L4 HW REMOVAL COMPARISON STUDY: 11/12/2018. FLUOROSCOPY TIME: 9 seconds. FINDINGS: 3 fluoroscopic spot images of the lumbar spine demonstrate posterior decompression fusion f rom L2 through L4 with pedicle screws and rods. Hardware appears intact. IMPRESSION: Fluoroscopic assistance provided for lumbar spinal fusion as described above. ACT 112: Negative or not required by law. Electronically signed by: Vu Carr M.D. 06/27/2021 2:35 PM
[2021-06-27] MEDS ORDERED: hydrALAZINE HCL 20 MG/ML VIAL IV STA (15:03)
[2021-06-27] MEDS ORDERED: hydrALAZINE HCL 20 MG/ML VIAL ONE (15:06)
[2021-06-27] MEDS: fentaNYL citrate 100 MCG/2 ML VIAL IV PRN ×4 (15:11→15:32)
--- NOTE | 2021-06-27 15:30 | Anesthesiology Progress Note ---
Date of Service June 27, 2021 Anesthesia Post Procedure Vital Signs Vital Signs: Temp Pulse Pulse Resp BP Pulse Ox 06/27/21 15:20 87 12 147/74 H 93 06/27/21 15:10 85 12 180/82 H 100 06/27/21 15:00 88 13 197/93 H 99 06/27/21 14:50 88 16 192/98 H 97 06/27/21 14:42 92 H 26 H 201/76 H 100 06/27/21 14:36 36 C L 94 H 14 188/117 H 100 06/27/21 08:28 36.7 C 88 20 165/99 H 100 Pain Intensity Bilateral Back: Pain Intensity: 2 Back: Pain Intensity: 8 Transfer of Care Handoff Completed per policy Notes Mental Status: alert / awake / arousable and participated in evaluation Patient Amnestic to Procedure: Yes Nausea / Vomiting: adequately controlled Pain: adequately controlled Airway Patency, RR, SpO2: stable & adequate BP & HR: stable & adequate Hydration State: stable & adequate Anesthetic Complications: no major complications apparent and Pt Satisfied with anesthetic care
[2021-06-27] MEDS ORDERED: ALUMINUM/MAGNESIUM SUSP 30 ML UDC PO PRN (16:23)
[2021-06-27] MEDS ORDERED: bisacodyL 10 MG SUPP PR PRN (16:23)
[2021-06-27] MEDS ORDERED: oxyCODONE HCL IR 5 MG TAB (IMMEDIATE RELEASE) PO PRN (16:23)
[2021-06-27] MEDS ORDERED: traMADol HCL 50 MG TABLET PO PRN (16:23)
[2021-06-27] MEDS ORDERED: FAMOTIDINE 20 MG TAB PO PRN (16:23)
[2021-06-27] MEDS ORDERED: LORazepam 0.5 MG/1 ML VIAL IV PRN (16:23)
[2021-06-27] MEDS ORDERED: MAGNESIUM HYDROXIDE SUSP 30 ML UDC PO PRN (16:23)
[2021-06-27] MEDS ORDERED: ONDANSETRON 4 MG OD TAB PO PRN (16:23)
[2021-06-27] MEDS ORDERED: SOD PHOSPHATE/SOD BIPHOSPHATE ENEMA 132 ML BTL PR PRN (16:23)
[2021-06-27] MEDS ORDERED: METOCLOPRAMIDE HCL INJ 5 MG/ML 2 ML VIAL IV PRN (16:23)
[2021-06-27] MEDS ORDERED: diphenhydrAMINE Capsule 25 MG CAP PO PRN (16:23)
[2021-06-27] MEDS ORDERED: NALOXONE HCL 0.4 MG/1 ML VIAL/CARP IV PRN (16:23)
[2021-06-27] MEDS ORDERED: PROMETHAZINE HCL 12.5 MG in SODIUM CHLORIDE 0.9% 50 ML IV PRN (16:23)
[2021-06-27] MEDS ORDERED: HYDROmorphone INJ 0.5 MG/0.5 ML SYR IV PRN (16:23)
[2021-06-27] MEDS ORDERED: DO NOT ADMINISTER PNEUMOCOCCAL VACCINE PRN (16:23)
[2021-06-27] MEDS ORDERED: DO NOT ADMINISTER FLU VACCINE PRN (16:23)
[2021-06-27] MEDS ORDERED: DOCUSATE SODIUM 100 MG CAP PO PRN (16:23)
[2021-06-27] MEDS ORDERED: hydrOXYzine HCl 25 MG TAB PO PRN (16:23)
[2021-06-27] MEDS ORDERED: ACETAMINOPHEN 1,000 MG/100 ML VIAL IV PRN (16:23)
[2021-06-27] MEDS: SODIUM CHLORIDE 0.9% 1000ML 1,000 ML IV SCH (16:45)
[2021-06-27] MEDS: LORazepam 0.5 MG TAB PO PRN (17:16)
--- NOTE | 2021-06-27 17:32 | Hospitalist Consultation ---
Date of Consultation June 27, 2021 Assessment & Plan (1) Lumbar spinal stenosis: - POD#0 L2-L3 decompression fusion, L3-L4 hardware removal by Dr. Campbell - activity and wound care orders as per ortho - pain control with bowel regimen - PT/OT - monitor H/H for acute blood loss anemia and transfuse blood products PRN - EBL 250 cc - Hgb 13.2 on 06/01/2021 (2) Hypertension: -BP intermittently elevated, may be situational -For now, continue home dose of carvedilol. Hold HCTZ pending a.m. labs (3) Carotid artery disease: (4) History of TIAs: -S/p bilateral carotid stenting -Resume Plavix at the discretion of spine Ortho -Continue ASA and statin (5) DVT prophylaxis: -TEDs/SCDs as per spine Ortho Thank you for this consultation. We will follow the patient with you during their hospital stay. You can reach a [facility] via the [facility] in [place] Text. Supervising Physician Co-Signing Physician Notes 65-year-old female with PMH HTN, bilateral carotid artery disease s/p stenting, history of TIA, depression, fibromyalgia, who is s/p L2-L3 decompression and fusion, L3-L4 hardware removal 06/27/[address] Campbell is a medical consult. Pt is doing fine postop. Reports pain at lower back but has not taken pain meds, wants vicodein specificially. Pain management/DVT prophylaxis/PT per orthopedics. Encourage spirometry. EBL 250 cc, was out for postoperative anemia. Upon examination: GENERAL: Alert and oriented x3. NAD, on RA. HEENT: No pallor, no icterus. Pupils equal, round and reactive to light. Oral mucosa moist. NECK: No JVD, no neck masses. HEART: S1 and S2 heard. Regular rate and rhythm. No murmur, no gallop. RESPIRATORY SYSTEM: Normal AP diameter. No accessory muscle use. No wheezing, no crackles. ABDOMEN: Soft, bowel sounds present, nontender, no distention. CENTRAL NERVOUS SYSTEM: No facial droop. Speech is clear. Obeys simple commands. Moves extremities. EXTREMITIES: No edema, no erythema seen. Clean dressing over the lower back without soakage. I have seen and examined the patient and have discussed the case with the provider above. I agree with the assessment and plan as stated. History of Present Illness Reason for Consultation: Postop medical management Requesting Physician: Dr. Campbell Attending Physician: Dr. Ramos History of Present Illness 65-year-old female with PMH HTN, bilateral carotid artery disease s/p stenting, history of TIA, depression, fibromyalgia, and other problems listed below who is s/p L2-L3 decompression and fusion, L3-L4 hardware removal today by Dr. Campbell. Postoperatively, the patient is doing well. She reports her pain is well controlled. She has chronic tingling to her lower extremities that is unchanged from baseline. No worsening weakness. Denies chest pain or shortness of breath. No lightheadedness or dizziness. Denies abdominal pain or nausea. Carney catheter is in place draining clear yellow urine. Allergies Allergy/AdvReac Type Severity Reaction Status Date / Time bee venom protein (honey bee) Allergy Severe ANAPHYLAXIS Verified 06/27/21 08:13 celecoxib Allergy Severe per Verified 06/27/21 08:13 patient request- contains sulfa Sulfa (Sulfonamide Allergy Severe SULFA = Verified 06/27/21 08:13 Antibiotics) Tongue swelled, itching azithromycin [From Zithromax] Allergy Intermediate Swelling Verified 06/27/21 08:13 of Lip/Tongue/Throat Home Medications Medication Instructions Recorded Confirmed Type acetaminophen 500 mg capsule 500 mg PO QID PRN #0 tab 05/13/13 06/27/21 History fluoxetine 20 mg capsule 40 mg PO QAM #0 cap 05/13/13 06/27/21 History milnacipran 100 mg tablet 100 mg PO BID #0 05/13/13 06/27/21 History pantoprazole 40 mg tablet,delayed 40 mg PO BID #30 tab 05/13/13 06/27/21 History release hydrochlorothiazide 25 mg tablet 25 mg PO QAM 30 Days #30 tab 06/03/15 06/27/21 History gabapentin 100 mg capsule 100 mg PO UD 10/16/18 06/27/21 History lactobacillus combination no.4 3 1 tab PO QAM 10/16/18 06/27/21 History billion cell capsule (Probiotic) polyethylene glycol 3350 17 gram 17 g PO DAILY 10/16/18 06/27/21 History oral powder packet (Miralax) aluminum-magnesium hydroxide 200 30 ml PO HS 11/12/18 06/27/21 History mg-200 mg/5 mL oral suspension docusate sodium 100 mg capsule 100 mg PO DAILY PRN 11/12/18 06/27/21 History (Colace) ondansetron HCl 4 mg tablet 4 mg PO Q6H #30 tab 11/14/18 06/27/21 Rx aspirin 81 mg capsule 81 mg PO QAM 06/14/21 06/27/21 History atorvastatin 40 mg tablet 40 mg PO DAILY 06/14/21 06/27/21 History carvedilol 6.25 mg tablet 6.25 mg PO BID 06/14/21 06/27/21 History clopidogrel 75 mg tablet (Plavix) 75 mg PO QAM 06/14/21 06/27/21 History cyclobenzaprine 5 mg tablet 5 mg PO DAILY PRN 06/14/21 06/27/21 History lorazepam 0.5 mg tablet 0.5 mg PO BID PRN 06/14/21 06/27/21 History vitamin A-vitamin C-vit E-min 1 tab PO QAM 06/14/21 06/27/21 History tablet Patient History Medical History Anemia Anxiety and depression Cardiac murmur No significant valvular pathology per 2019 ECHO Carotid artery disease S/p bilateral stent TCAR (transcarotid artery revascularization) - left carotid stent placed 01/2020 and right carotid stent placed 05/2020 - <50% stenosis per 06/2020 carotid doppler Esophageal motility disorder Fibromyalgia GERD (gastroesophageal reflux disease) 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 History of TIAs 12/2019 (SYPTOMS>RT SIDE WEAKNESS/SLURRED SPEECH/HEADACHE>STILL HAS WORD FINDING PROBLEMS WHEN STRESSED) Hyperlipidemia Hypertension Irritable bowel syndrome Lumbar spinal stenosis Lung nodule UNDER SURVELLANCE Multiple sclerosis Per PCP records Neuropathy kylie feet and hands Obesity Spinal cord stimulator status Implanted by Dr Campbell, PATIENT AWARE TO BRING REMOTE AM DOS PER NURSING Surgical History Family history of reaction to anesthesia MOTHER>NAUSEA H/O laparoscopy to look for adhesions H/O lumbosacral spine surgery X 2 H/O shoulder surgery RIGHT SHOULDER CYST REMOVAL H/O tubal ligation H/O: hysterectomy TRAVON History of breast biopsy STEREOTACTIC RIGHT BREAST History of carpal tunnel release RIGHT History of colonoscopy History of common carotid artery stent placement Left carotid stent placed 01/2020 and right carotid stent placed 05/2020 - follows with [facility] Hx of tonsillectomy S/P insertion of spinal cord stimulator S/P trigger finger release RIGHT RING FINGER Family History Grandmother No problems noted. Sister Colon cancer Grandmother (Maternal) Breast cancer Mother Breast cancer Aunt Breast cancer Grandmother (Paternal) Colon cancer Social History Smoking Status: Former smoker Smoking End Date: 30 YEARS AGO; Second Hand Exposure: No; Do You Dip or Chew Tobacco: No; Hx Alcohol Use: No Hx Substance Use: No Preferred Language: Samoan Communication Ability: Effective Housekeeping Department Worker Required: No Beliefs That Will Affect Care: None marital status: Current Living Situation: Spouse Feels Safe at Home: Yes Safety Concerns: Feels Safe At This Time Assistive Devices: Glasses Review of Systems Review of Systems: ROS per HPI, all other systems reviewed and negative Physical Exam Constitutional: WD/WN, vitals as above Eyes: PERRL, conjunctivae normal, anicteric sclerae ENMT: external ear and nose normal, oropharynx normal Respiratory: normal respiratory effort, lungs clear to auscultation Cardiovascular: Rate/Rhythm: regular rate and regular rhythm Vessels: normal peripheral pulses Extremities: no edema Gastrointestinal (Abdomen): normal bowel sounds, soft, nontender, no hepatosplenomegaly Musculoskeletal: no cyanosis or clubbing, extremities motor strength 5/5 S/p back surgery, pedal pushes and pulls strong bilaterally, drain in place draining bloody drainage Skin: no rashes, warm and dry Neurologic: PERRL, EOMI, accommodation nl, no face palsy, no dysarthria Psychiatric: A+Ox3, euthymic affect Genitourinary: Carney catheter in place draining clear yellow urine Results & Data Results & Data ([facility]) Vital Signs (Past 12 Hours) Vital Signs Temp Pulse Pulse Pulse Resp BP Pulse Ox 06/27/21 17:15 36.4 C L 95 H 16 141/59 H 94 06/27/21 16:45 36.6 C 100 H 16 174/80 H 95 06/27/21 16:15 36.7 C 100 H 18 147/79 H 98 06/27/21 16:10 91 H 16 143/73 H 100 06/27/21 16:00 89 12 139/84 100 06/27/21 15:50 37 C 94 H 15 149/61 H 99 06/27/21 15:40 93 H 12 115/83 99 06/27/21 15:30 89 10 L 143/69 H 99 06/27/21 15:20 87 12 147/74 H 93 06/27/21 15:10 85 12 180/82 H 100 06/27/21 15:00 88 13 197/93 H 99 06/27/21 14:50 88 16 192/98 H 97 06/27/21 14:42 92 H 26 H 201/76 H 100 06/27/21 14:36 36 C L 94 H 14 188/117 H 100 06/27/21 08:28 36.7 C 88 20 165/99 H 100
[2021-06-27] MEDS: GABAPENTIN 100 MG CAP PO SCH ×2 (17:58→21:11)
[2021-06-27] MEDS: HYDROCODONE/ACETAMOPHEN 5/325MG TAB PO PRN (19:16)
[2021-06-27] MEDS: ceFAZolin 2000MG 2,000 MG/15 ML SYR IV SCH (21:09)
[2021-06-27] MEDS: ALUMINUM/MAGNESIUM SUSP 30 ML UDC PO SCH (21:09)
[2021-06-27] MEDS: carvediloL 6.25 MG TAB PO SCH (21:10)
[2021-06-27] MEDS: DOCUSATE SODIUM/SENNA 50/8.6MG TAB PO SCH (21:10)
[2021-06-27] MEDS: PANTOprazole 40 MG TAB PO SCH (21:11)
[2021-06-28] MEDS: HYDROCODONE/ACETAMOPHEN 5/325MG TAB PO PRN ×3 (01:28→20:24)
[2021-06-28] MEDS: LORazepam 0.5 MG TAB PO PRN ×3 (01:28→20:24)
[2021-06-28] MEDS: SODIUM CHLORIDE 0.9% 1000ML 1,000 ML IV SCH (01:33)
[2021-06-28] MEDS: POLYETHYLENE (MIRALAX) 17 GM PACK PO SCH ×3 (05:04→17:50)
[2021-06-28] MEDS: ceFAZolin 2000MG 2,000 MG/15 ML SYR IV SCH (05:04)
[2021-06-28] MEDS: ACETAMINOPHEN 500 MG TAB PO PRN ×2 (05:14→16:09)
[2021-06-28] MEDS: dexAMETHasone 6 MG in SYRINGE 0 ML IV SCH (08:00)
[2021-06-28] MEDS: PANTOprazole 40 MG TAB PO SCH ×2 (08:00→20:26)
[2021-06-28] MEDS: ATORVASTATIN 40 MG TAB PO SCH (08:01)
[2021-06-28] MEDS: FLUoxetine HCL 20 MG CAP PO SCH (08:01)
[2021-06-28] MEDS: GABAPENTIN 100 MG CAP PO SCH ×3 (08:02→20:25)
[2021-06-28] MEDS: ADVANCED PROBIOTIC 1250 MG CAPSULE PO SCH (08:02)
[2021-06-28] MEDS: carvediloL 6.25 MG TAB PO SCH ×2 (08:02→20:26)
[2021-06-28] MEDS: MULTIVITAMIN TAB PO SCH (08:03)
[2021-06-28] MEDS: ASPIRIN 81 MG ECTAB PO SCH (08:03)
[2021-06-28] MEDS ORDERED: hydroCHLOROthiazide 25 MG TAB PO SCH (09:00)
[2021-06-28 09:26] LABS: Hemoglobin 9.4 g/dL (12.0-16.0); Immature Granulocytes # (auto) 0.03 K/uL (0.00-0.02); Immature Granulocytes % (auto) 0.3 %; Lymphocytes # (auto) 0.75 K/uL (1.2-3.4); Lymphocytes % (auto) 6.7 %; Mean Corpuscular Hemoglobin 25.8 pg (25-34); Mean Corpuscular Hgb Conc 31.3 g/dL (32-36); Mean Corpuscular Volume 82.4 fL (80-100); Monocytes # (auto) 0.67 K/uL (0.11-0.59); Monocytes % (auto) 5.9 %; Neutrophils # (auto) 9.82 K/uL (1.4-6.5); Neutrophils % (auto) 87.1 %; Platelet Count 303 K/uL (130-400); RDW Coefficient of Variation 13.8 % (11.5-14.5); Red Blood Count 3.64 M/uL (4.2-5.4); White Blood Count 11.27 K/uL (4.8-10.8)
[2021-06-28 09:53] LABS: BUN Creatinine Ratio 15.6 (10-20); Calcium 8.3 mg/dl (8.5-10.1); Creatinine Clr Calc Pharmacy 69.1 ml/min; Est GFR (Non-African American) 69.9 ml/min; Potassium 4.3 mmol/L (3.5-5.1)
--- NOTE | 2021-06-28 12:22 | Hospitalist Progress Note ---
Date of Service June 28, 2021 Assessment & Plan (1) Lumbar spinal stenosis: Plan: - POD#1 L2-L3 decompression fusion, L3-L4 hardware removal by Dr. Campbell - activity and wound care orders as per ortho - pain control with bowel regimen - PT/OT - monitor H/H for acute blood loss anemia and transfuse blood products PRN - EBL 250 cc, drain output 170 cc to date Postoperative acute blood loss anemia - Hgb 13.2 on 06/01/2021 --> 9.4 today -No indication for transfusion, continue to trend H&H (2) Hypertension: Plan: -BP improved -Continue home dose of carvedilol, resume HCTZ today (3) Carotid artery disease: (4) History of TIAs: Plan: -S/p bilateral carotid stenting -Resume Plavix at the discretion of spine Ortho -Continue ASA and statin (5) DVT prophylaxis: Plan: -TEDs/SCDs as per spine Ortho Thank you for this consultation. We will follow the patient with you during their hospital stay. You can reach a member of the [facility] Hospitalist Team 15/01 [facility] [place] Text. Admission and Anticipated Discharge Date Admission Date: June 27, 2021 Supervising Physician Co-Signing Physician Notes 65-year-old female with PMH HTN, bilateral carotid artery disease s/p stenting, history of TIA, depression, fibromyalgia, who is s/p L2-L3 decompression and fusion, L3-L4 hardware removal 06/27/[address] Campbell is a medical consult. Pt is doing fine postop. Reports pain at lower back which is under control. Pt took vicodin. Pain management/DVT prophylaxis/PT per orthopedics. Encourage spirometry. EBL 250 cc, was out for postoperative anemia.Hemoglobin stable. Patient has worked with physical therapy prior to my examination and she did fine per her and PT. Upon examination: GENERAL: Alert and oriented x3. NAD, on RA. HEENT: No pallor, no icterus. Pupils equal, round and reactive to light. Oral mucosa moist. NECK: No JVD, no neck masses. HEART: S1 and S2 heard. Regular rate and rhythm. No murmur, no gallop. RESPIRATORY SYSTEM: Normal AP diameter. No accessory muscle use. No wheezing, no crackles. ABDOMEN: Soft, bowel sounds present, nontender, no distention. CENTRAL NERVOUS SYSTEM: No facial droop. Speech is clear. Obeys simple commands. Moves extremities. EXTREMITIES: No edema, no erythema seen. Clean dressing over the lower back without soakage. DIMAS drain with minimal serosanguineous collection in situ. I have seen and examined the patient and have discussed the case with the provider above. I agree with the assessment and plan as stated. Subjective Patient seen and examined. Follow-up for medical management s/p back surgery. Patient sitting up in the chair. Reports pain is well controlled. No chest pain or shortness of breath. Denies abdominal pain or nausea. No flatus or BM yet. Carney remains in place. Physical Exam Constitutional: WD/WN, vitals as above no acute distress Sitting up in the chair Respiratory: normal respiratory effort, lungs clear to auscultation Cardiovascular: Rate/Rhythm: regular rate and regular rhythm Vessels: normal peripheral pulses Extremities: no edema Gastrointestinal (Abdomen): Percussion/Palpation: abdomen soft; abdomen nontender Musculoskeletal: no cyanosis or clubbing, extremities motor strength 5/5 S/p back surgery, strength strong and equal BLE, drain in place draining bloody drainage Skin: no rashes, warm and dry Neurologic: no focal motor deficits Psychiatric: A+Ox3, euthymic affect Genitourinary: Carney in place draining clear yellow urine Results & Data Results & Data ([facility]) Vital Signs (Past 12 Hours) Vital Signs Temp Pulse Resp BP BP Pulse Ox 06/28/21 11:00 36.7 C 94 H 16 132/67 93 06/28/21 07:40 36.8 C 103 H 16 115/57 L 94 06/28/21 04:22 36.6 C 100 H 18 117/66 93 Laboratory Results Short CBC 06/28/21 Range/Units 09:06 WBC 11.27 H (4.8-10.8) K/uL Hgb 9.4 L (12.0-16.0) g/dL Hct 30.0 L (37-47) % Plt Count 303 (130-400) K/uL BMP 06/28/21 09:06 Sodium 136 Potassium 4.3 Chloride 106 Carbon Dioxide 24 BUN 14 Creatinine 0.87 Glucose 190 H Calcium 8.3 L
--- NOTE | 2021-06-28 13:55 | Orthopedic Progress Note ---
Date of Service June 28, 2021 Assessment & Plan (1) Lumbar spinal stenosis: Plan: At this time we will continue physical therapy monitor her DIMAS output hopefully discharge home tomorrow. Admission and Anticipated Discharge Date Admission Date: June 27, 2021 Subjective Back pain is controlled leg symptoms improved Physical Exam Physical Exam: Patient has good strength testing there is comfortable. Results & Data ([facility]) Vital Signs (Past 12 Hours) Vital Signs Temp Pulse Resp BP BP Pulse Ox 06/28/21 11:00 36.7 C 94 H 16 132/67 93 06/28/21 07:40 36.8 C 103 H 16 115/57 L 94 06/28/21 04:22 36.6 C 100 H 18 117/66 93
[2021-06-28] MEDS: ALUMINUM/MAGNESIUM SUSP 30 ML UDC PO SCH (20:24)
[2021-06-28] MEDS: DOCUSATE SODIUM/SENNA 50/8.6MG TAB PO SCH (20:26)
[2021-06-29] MEDS: POLYETHYLENE (MIRALAX) 17 GM PACK PO SCH ×3 (00:11→11:02)
[2021-06-29] MEDS: ACETAMINOPHEN 500 MG TAB PO PRN (03:28)
[2021-06-29 06:30] LABS: Hematocrit (blood only) 29.9 % (37-47); Hemoglobin 9.4 g/dL (12.0-16.0)
[2021-06-29] MEDS: carvediloL 6.25 MG TAB PO SCH (08:21)
[2021-06-29] MEDS: ATORVASTATIN 40 MG TAB PO SCH (08:22)
[2021-06-29] MEDS: PANTOprazole 40 MG TAB PO SCH (08:22)
[2021-06-29] MEDS: ADVANCED PROBIOTIC 1250 MG CAPSULE PO SCH (08:22)
[2021-06-29] MEDS: ASPIRIN 81 MG ECTAB PO SCH (08:23)
[2021-06-29] MEDS: GABAPENTIN 100 MG CAP PO SCH (08:24)
[2021-06-29] MEDS: FLUoxetine HCL 20 MG CAP PO SCH (08:24)
[2021-06-29] MEDS: MULTIVITAMIN TAB PO SCH (08:24)
[2021-06-29] MEDS: dexAMETHasone 6 MG in SYRINGE 0 ML IV SCH (08:26)
[2021-06-29] MEDS: HYDROCODONE/ACETAMOPHEN 5/325MG TAB PO PRN (11:07)
--- NOTE | 2021-06-29 12:59 | Discharge Summary ---
Date of Service June 29, 2021 Admission HPI Per Admitting Provider This is a 65-year-old female presents with chronic persistent back and leg pain. Failing course of nonoperative care she is here for surgical invention. Principal Diagnosis Lumbar spinal stenosis with neurogenic claudication Discharge Data Allergies Allergy/AdvReac Type Severity Reaction Status Date / Time bee venom protein (honey bee) Allergy Severe ANAPHYLAXIS Verified 06/27/21 08:13 celecoxib Allergy Severe per Verified 06/27/21 08:13 patient request- contains sulfa Sulfa (Sulfonamide Allergy Severe SULFA = Verified 06/27/21 08:13 Antibiotics) Tongue swelled, itching azithromycin [From Zithromax] Allergy Intermediate Swelling Verified 06/27/21 08:13 of Lip/Tongue/Throat Consultations 06/27/21 16:23 Consult Hospitalist Routine Procedures Performed Operation Date: 06/27/21 09:50 Actual Procedures p L2-L3 Decompression Fusion, Spinal Cord Monitoring, Application of Bone Morphogenetic Protein and I- Factor. (Not Applicable) - Maciel Campbell DO s L3-L4 Hardware Removal, (Not Applicable) - Maciel Campbell DO Ordered Studies 06/27/21 09:50 [place] lumbar spine 2-3V Routine Hospital Course (1) Lumbar spinal stenosis: Patient with limited motion fusion trial as well as leg orthopedic for postop bleed. Postop day 1 she was up and ambulating progressive postop day #2. DIMAS drain decreasing probably. Excellent strength testing. Socially discharged home. Discharge orders and instructions were on the chart for further view. Total Time Total Time Spent Total Time Spent (In Minutes): 20 minutes Discharge Plan Discharge Items Patient Disposition: Home - Self-Care Reason For Visit: Spinal Stenosis, Lumbar Region with Neurogenic Cla Discharge Diagnosis: Lumbar spinal stenosis with neurogenic claudication Activity: As commented below Non-emergency contact: Primary Care Provider Call non-emergency contact if: you have any medication questions Follow-up/Referrals: Gino Whitmore MD [Primary Care Provider] - Diet: Regular Addtl Attending Provider Instructions: ACTIVITY RECOMMENDATIONS: SELF CARE INSTRUCTIONS AFTER THORACIC/LUMBAR FUSIONS 1. You may walk to your tolerance. It is good exercise for your legs and back. Expect some back and intermittent leg aches and pains. 2. You may perform "counter-top" level activities (make a sandwich, shon with a project, etc.). 3. No bending or lifting of more than 10 pounds or back twisting of any nature (roll like a log when turning in bed). 4. You may ride in a car for 20-30 minutes at a time. No driving until after your first visit with your doctor. 5. Frequent changes of position and restricting sitting to 30 minutes at a time will help limit the amount of back spasms and stiffness you may experience. 6. You may discontinue the use of ambulatory aids (cane, crutches, etc.) once your strength and confidence allow. 7. You may patching machine operator the shower and let water strike your incision when you arrive home at least once daily. Do not take a tub bath, sit in a hot tub or go into a swimming pool until after your first recheck in the office. SPECIAL CARE INSTRUCTIONS: VERY IMPORTANT TO READ AND REVIEW A. Your surgical incision has been closed with a cosmetic suture under the skin that will dissolve in about 6 weeks. In 14 days, you can use a pair of clean scissors and cut the suture that is left outside of the skin at the ends of your incision. 1. The small skin tapes can be removed 7 days after surgery if they have not fallen off by that point. 2. You may keep the wound open to air as much as possible to promote healing after post-op day number 5 unless told otherwise by your doctor. 3. If you think the wound looks like it is becoming infected (redness or worsening drainage) and/or you are experiencing fever, chill or worsening back pain and muscle spasms, contact the office so that we may evaluate you as soon as possible. B. Complications are uncommon, but please contact us if you have any signs or symptoms of: 1. wound infection (fever higher than 102.5 degrees F, redness, separation of wound, drainage, or increasing pain from the incision) 2. blood clots in legs (pain, swelling, redness and warmth in legs) 3. urinary tract infection (fever higher than 102.5 degrees F, burning upon urination or increased frequency of urination) 4. nerve problems (inability to walk on your toes or heels, numbness, loss of bowel or bladder control) 5. any other symptoms that concern you C. Please call the office at if you have any concerns or questions about your operation or recovery. D. No smoking! Smoking drastically decreases the chance of a solid fusion. E. Do not take any anti-inflammatory medications (Indocin, Advil, Motrin, Aspirin, Naprosyn, etc.) as these may inhibit the chance of a solid fusion. Tylenol is okay to take for pain. MANAGING PAIN AFTER SPINAL SURGERY 1. Narcotic medication is intended for short-term use and will be provided for surgical pain. Surgical pain usually lasts for a period of 4-6 weeks. Narcotic medication includes Percocet, Vicodin, Darvocet, Tylenol #3 or Lortab. 2. Longer-term pain is more appropriately treated with non-narcotic medication such as Tylenol ES. 3. Muscle spasm is not appropriately treated with narcotics. Muscle relaxers such as Soma, Flexeril or Skelaxin can be used along with Tylenol ES. 4. Remember that we all live with some "aches and pains". This is not unusual or uncommon after an injury or as we get older. a. Back pain is expected and may include muscle spasms for 4 to 6 weeks after surgery. The pain should gradually improve. If the pain worsens for no apparent reason, please contact the office. b. Intermittent leg pain may also be experienced and should not be concerned about unless it worsens for no apparent reason. If so, please contact the office. 5. We will provide appropriate medication within the normal guidelines of their prescribed use. We will also be very cautious and aware of potential abuse and extended duration of patients' medication needs. a. Pain medications are for your comfort and to assist with sleep and rest so that the tissue can heal. They are not provided in order to return to normal activity and should not be used through the day. To do so or worsening pain at night can result from ongoing tissue damage and development of tolerance to the prescribed medicine. 6. Please allow 2-3 days to process refills. Prescriptions will not be mailed but must be picked up at the office. FOLLOW UP VISIT: Keep your scheduled follow-up appointment. Any questions, please call the office at . Pending Studies at Discharge: No Stand-Alone Forms: [employer], Smoking Cessation Medications and DC Order Prescriptions: New tramadol 50 mg tablet 50 mg PO Q6H PRN (Reason: pain, moderate) Qty: 30 RF: 0 oxycodone 5 mg tablet 5 mg PO Q6H PRN (Reason: pain, severe) Qty: 30 RF: 0 Continued pantoprazole 40 mg Tablet,Delayed Release (Dr/Ec) 40 mg PO BID Qty: 30 RF: 0 fluoxetine 20 mg Capsule 40 mg PO QAM Qty: 0 RF: 0 acetaminophen 500 mg Capsule 500 mg PO QID PRN (Reason: Pain) Qty: 0 RF: 0 milnacipran 100 mg Tablet 100 mg PO BID Qty: 0 RF: 0 hydrochlorothiazide 25 mg Tablet 25 mg PO QAM 30 Days Qty: 30 RF: 5 polyethylene glycol 3350 [Miralax] 17 gram Powder In Packet 17 g PO DAILY RF: 0 gabapentin 100 mg Capsule 100 mg PO UD RF: 0 Probiotic 3 billion cell Capsule 1 tab PO QAM RF: 0 docusate sodium [Colace] 100 mg Capsule 100 mg PO DAILY PRN (Reason: Constipation) RF: 0 aluminum-magnesium hydroxide 200-200 mg/5 mL Suspension 30 ml PO HS RF: 0 ondansetron HCl 4 mg Tablet 4 mg PO Q6H Qty: 30 RF: 0 atorvastatin 40 mg Tablet 40 mg PO DAILY RF: 0 carvedilol 6.25 mg Tablet 6.25 mg PO BID RF: 0 clopidogrel [Plavix] 75 mg Tablet 75 mg PO QAM RF: 0 aspirin 81 mg Capsule 81 mg PO QAM RF: 0 lorazepam 0.5 mg Tablet 0.5 mg PO BID PRN (Reason: Anxiety/PAIN) RF: 0 vitamin A-vitamin C-vit E-min Tablet 1 tab PO QAM RF: 0 cyclobenzaprine 5 mg Tablet 5 mg PO DAILY PRN (Reason: Pain) RF: 0 Discharge Orders: Discharge Order (Routine); Ordered 06/29/21 Ordered By: Maciel Campbell Admission Data Admit Date/Time: 06/27/21 14:35 Attending Provider: Maciel Campbell Admit Provider: Maciel Campbell Primary Care Provider: Gino Whitmore Other Providers: Breezy Ramos
[2021-06-29] MEDS: LORazepam 0.5 MG TAB PO PRN (13:58)
[2021-06-29 14:36] VITALS: BP 120/70; PULSE 66; TEMP 97.5; O2SAT 96
--- NOTE | 2021-06-29 15:59 | Hospitalist Progress Note ---
Date of Service June 29, 2021 Assessment & Plan (1) Lumbar spinal stenosis: Plan: - POD#2 L2-L3 decompression fusion, L3-L4 hardware removal by Dr. Campbell - activity and wound care orders as per ortho - pain control with bowel regimen - PT/OT - monitor H/H for acute blood loss anemia and transfuse blood products PRN - EBL 250 cc, drain output 285 cc to date Postoperative acute blood loss anemia - Hgb 13.2 on 06/01/2021 --> 9.4 --> 9.4 today -No indication for transfusion (2) Hypertension: Plan: -BP improved -Continue home dose of carvedilol, HCTZ (3) Carotid artery disease: (4) History of TIAs: Plan: -S/p bilateral carotid stenting -Resume Plavix at discharge per spine Ortho -Continue ASA and statin (5) DVT prophylaxis: Plan: -TEDs/SCDs as per spine Ortho Thank you for this consultation. We will follow the patient with you during their hospital stay. You can reach a member of the [facility] Hospitalist Team 15/01 via the [facility] Hospitalist role in [place] Text. Admission and Anticipated Discharge Date Admission Date: June 27, 2021 Supervising Physician Co-Signing Physician Notes Attending Addendum: delayed entry date of service noted above care coordinated with LAMBERT Kirkland please refer to her notes for full details, I agree with her notes patient seen and examined, records reviewed by myself as well on exam, patient seen resting in bedside chair, comfortable minimal back pain no other symptoms VS noted and reviewed oriented x 3 , not in distress, speaks in sentences with no effort nor accessory muscle use normal rate, regular rhythm, no murmurs clear breath sounds bilaterally non distended, soft, nontender no bipedal edema, erythema, warmth no neuro deficits Hg 9.4 ASSESSMENT AND PLAN> S/P LUMBAR SPINE SURGERY - stable overall - may resume Plavix per Ortho SVC HTN - continue usual BP meds at home other diagnoses and plan of care as per JANETTE Kirkland's notes Rommel Ryan MD Subjective Patient seen and examined. Follow-up for medical management s/p back surgery. Patient sitting up in the chair, offers no complaints. Eager to be discharged. Reports pain is well controlled. Denies chest pain and shortness of breath. No abdominal pain or nausea. Review of Systems Review of Systems: ROS per HPI, all other systems reviewed and negative Physical Exam Constitutional: WD/WN, vitals as above Respiratory: normal respiratory effort, lungs clear to auscultation Cardiovascular: Rate/Rhythm: regular rate and regular rhythm Vessels: normal peripheral pulses Extremities: no edema Gastrointestinal (Abdomen): Percussion/Palpation: abdomen soft; abdomen nontender Musculoskeletal: S/p back surgery, strength strong and equal BLE Skin: no rashes, warm and dry Neurologic: no focal motor deficits Psychiatric: A+Ox3, euthymic affect Results & Data Results & Data ([facility]) Vital Signs (Past 12 Hours) Vital Signs Temp Pulse Resp BP Pulse Ox 06/29/21 14:36 36.4 C L 66 16 120/70 96 06/29/21 07:28 36.7 C 82 16 148/79 H 98 Laboratory Results Short CBC 06/29/21 Range/Units 05:53 Hgb 9.4 L (12.0-16.0) g/dL Hct 29.9 L (37-47) %
== END 2021-06-29 15:01 | disposition home or self-care (01) | DRG 454 ==
LOC: ASU 07:33 → 3N 14:35